=== PATIENT | male | born 1995 | race Caucasian/White ===

== ENCOUNTER 2020-06-11 14:43 | Emergency (ER) | payer OTHER ==
[~2020-06-11] VITALS: Ht 172.7 cm; Wt 90.7 kg
--- NOTE | 2020-06-11 14:43 | NUR ---
med VERSED 2MG IV. FOLLOWED BY 2MG VERSED IV FOR SEIZURE ACTIVITY.
--- NOTE | 2020-06-11 14:43 | NUR ---
ARRIVAL PT TO ED2 SEIZING FROM VEHICLE. HX OF SEIZING ACCORDING TO FRIEND. STATES HEHAS BEEN UNRESPONSIVE AND SEIZING SINCE PANHANDLE FOR APPROX. 30 MINUTES.
--- NOTE | 2020-06-11 14:43 | NUR ---
Elroy diaz in [facility] - 06/11/20 at 1626 by RTDUYEN MED ATIVAN 4MG IV
[2020-06-11 14:44] VITALS: BP 91/71
--- NOTE | 2020-06-11 14:44 | NUR ---
Elroy diaz in [facility] - 06/11/20 at 1626 by RTWAIT MED VERSED 2MG GIVEN IV. X2. VS: 91/71, 83% O2, 129 HR.
--- NOTE | 2020-06-11 14:46 | NUR ---
AIRWAY MAINTAINING AIRWAY, BAG AND MASK UNTIL INTUBATION.
--- NOTE | 2020-06-11 14:51 | NUR ---
Elroy diaz in [facility] - 06/11/20 at 1626 by RTWAIT MED 100MG NILS IV GIVEN FOR INTUBATION.
--- NOTE | 2020-06-11 14:51 | NUR ---
MED NILS 100MG GIVEN IV FOR INTUBATION.
--- NOTE | 2020-06-11 14:52 | NUR ---
INTUBATION PT INTUBATED WITH 7.5 ETT, 22 AT THE LIP. VERIFIED
--- NOTE | 2020-06-11 14:52 | NUR ---
pt hyperventilated via ambu bag/mask, intubated on 1st attempt with 7.5 ETT, by DOV Mcclellan, secured at the 22cm at teeth, confirmation with color change, bbs and followed by xray,
[2020-06-11 14:54] VITALS: BP 154/76
[2020-06-11 15:01] VITALS: BP 139/52
--- NOTE | 2020-06-11 15:01 | NUR ---
PROPOFOL GTT STARTED AT 5MCG/KG/MIN.
[2020-06-11] MEDS ORDERED: NS 1000ML ONE (15:07)
[2020-06-11] MEDS ORDERED: ATIVAN ONE ×2 (15:07→15:54)
[2020-06-11] MEDS ORDERED: VERSED ONE (15:07)
[2020-06-11] MEDS ORDERED: QUELICIN ONE (15:08)
[2020-06-11 15:15] VITALS: BP 91/71
[2020-06-11 15:20] LABS: ABG PCO2 37.7 mmHg (35.0-45.0); ABG PH 7.167 (7.350-7.450); BE(B) -14.4 mmol/L (-2.0-2.0); HCO3act 13.3 mmol/L (22.0-26.0); pO2 341.9 mmHg (80.0-100.0)
[2020-06-11 15:23] LABS: BASOPHIL % 0.1 % (0.0-0.2); EOSINOPHIL # 0.2 10^3/uL (0.0-0.2); EOSINOPHIL % 1.1 % (0.0-5.0); LYMPHOCYTES % 30.2 % (24.0-44.0); MEAN CORP HGB 29.7 pg (26-34); MONOCYTES # 1.7 10^3/uL (0.3-0.8); NEUTROPHIL # 13.1 10^3/uL (1.8-7.7); NEUTROPHILS % 59.9 % (41.0-85.0); PLATELET COUNT 356 10^3/uL (150-400); RED CELL DISTRIBUTION WIDTH 14.4 % (11.5-14.5)
--- NOTE | 2020-06-11 15:44 | PCM.EKG ---
[facility] Test Date: 2020-06-11 Test Time: 15:29:38 Pat Name: GABRIELLE NGUYEN Department: Patient ID: [id number] Room: Gender: M [place]: RT : 1995 Requested By: REBEL VENEGAS Order Number: [id number] Reading MD: Rebel Venegas Measurements Intervals [place] Rate: 99 P: 72 WV: 110 QRS: 73 QRSD: 103 T: 66 QT: 347 QTc: 446 Interpretive Statements Sinus arrhythmia Borderline ST depression, diffuse leads No previous ECG available for comparison Electronically Signed On 06-14-2020 15:18:42 CDT by Rebel Venegas Please click the below link to view image of tracing.
--- NOTE | 2020-06-11 15:45 | DIREP ---
PROCEDURE:CHEST 1 VIEW COMPARISON:[facility], , CHEST 2 VIEW, 08/09/2013, 04:16 PM. INDICATIONS:S/P INTUBATION FINDINGS: LUNGS/PLEURA:Tip of ETT in satisfactory position above the [place]. Bilateral parahilar pulmonary opacities. Haziness in the right lung base suggestive of pleural fluid layering posteriorly. CARDIAC:Normal cardiac silhouette and increased pulmonary vascularity. MEDIASTINUM:Normal BONES:Normal OTHER:NGT courses subdiaphragmatic and off the field of view. CONCLUSION:Findings suggestive of pulmonary edema or pneumonia. Dictated by: Radha Rojas MD on 06/11/2020 at 03:41 PM
[2020-06-11] MEDS ORDERED: NS 1000ML 1,000 ML ONE (15:47)
--- NOTE | 2020-06-11 15:47 | NUR ---
CT PT TO CT. PROPOFOL DRIP INCREASED TO 8MCG/KG/MIN.
[2020-06-11 15:52] LABS: ALANINE AMINOTRANSFERASE(ML) 15 U/L (12-78); ALKALINE PHOSPHATASE 83 U/L (50-136); ASPARTATE AMINO TRANSFERASE 20 U/L (0-35); CALCIUM 8.7 mg/dL (8.4-10.5); CARBON DIOXIDE 10.3 mmol/L (20.0-32); GLUCOSE 144 mg/dL (70-110)
[2020-06-11] MEDS ORDERED: KCL 20MEQ/100ML 100 ML IV STA (16:03)
--- NOTE | 2020-06-11 16:10 | NUR ---
CT PT BACK FROM CT SCAN.
--- NOTE | 2020-06-11 16:15 | DIREP ---
PROCEDURE:CT HEAD OR BRAIN W/O CONTRAST COMPARISON:[facility], CT, CT HEAD BRAIN W/O CONTRAST, 04/01/2015, 04:55 PM. INDICATIONS:SEIZURE TECHNIQUE:CT images were created without intravenous contrast. FINDINGS: VENTRICLES:The ventricles are normal in size and configuration. CEREBRUM:Normal cerebral morphology with appropriate jay white matter differentiation. CEREBELLUM:Negative. BRAINSTEM:Negative. BASAL CISTERNS:Negative. HEMORRHAGE:No MASS LESION:No ACUTE INFARCT:No SKULL:Normal. SINUSES:Normal. OTHER:None CONCLUSION:Normal examination. There is no significant change as compared with the previous examination. Dictated by: Kamron Joiner M.D. on 06/11/2020 at 04:13 PM
--- NOTE | 2020-06-11 16:16 | ER.PDOC ---
General Chief Complaint: Seizure Stated Complaint: SIEZURE Time seen by MD: 15:33 Source: family Exam Limitations: clinical condition History of Present Illness Initial Comments IN STATUS EPILEPTICUS Timing/Onset/Duration: Unknown Duration, Multiple Episodes, Status Epilepticus, Continued On Arrival Preceding Symptoms/Context: none Character Of Seizures: completely, did not regain between Motor Activity: shaking all over Injury: none Prior symptoms/Treatment: Similar symptoms previous Allergies: Coded Allergies: No Known Allergies (Unverified , 07/14/13) Past Medical History Surgical History: no surgical history Social History Alcohol Use: none Drug Use: marijuana Reviewed Nursing Reviewed: Vital Signs, Abn. Noted All Other Systems: Reviewed and Negative Physical Exam General Appearance: severe distress, convulsing EENT: nml eye inspection, PERRL, no nystagmus, nml ENT inspection, no apparent, pharynx nml, no CSF leak Neck/Back: neck supple, non-tender Respiratory: no resp distress, no evidence of rib injury, rhonchi CVS: heart sounds nml, tachycardia Abdomen: non-tender, no organomegaly, no distention Skin: no rash, warm/dry, cyanosis, diaphoresis Extremities: non-tender, nml ROM, no pedal edema Observed Seizure Activity: generalized Intubation Intubation : Intubation Method: orotracheal Blade: straight Tube Size (cm): 7.0 Preoxygenated: Yes Medications: Rocuronium, Versed Breath Sounds after Intubation: equal Intubation Complications: no complications Results/Orders Results/Orders Orders - KAYLEIGH VENEGAS MD 0.9 % Sodium Chloride (Ns 1000ml) (06/11/20 15:07) Midazolam Hcl (Versed) (06/11/20 15:07) Lorazepam (Ativan) (06/11/20 15:07) Succinylcholine Chloride (Quelicin) (06/11/20 15:08) Cbc With Auto Diff (06/11/20 15:08) Comprehensive Metabolic Panel (06/11/20 15:08) Creatine Kinase (06/11/20 15:08) Creatine Kinase Mb (06/11/20 15:08) Troponin I (06/11/20 15:08) Probnp B-Type Inspection Machine Tender (06/11/20 15:08) PT (06/11/20 15:08) Partial Thromboplastin Time. (06/11/20 15:08) Helicobacter Pylori (06/11/20 15:08) D-Dimer (06/11/20 15:08) Xr Chest 1v (06/11/20 15:08) Ekg-Routine (06/11/20 15:08) Arterial Blood Gas (06/11/20 15:08) Drug Scrn Med W Confirmation (06/11/20 15:16) Alcohol(Ml) (06/11/20 15:16) Ct Head Wo Contrast (06/11/20 15:17) 0.9 % Sodium Chloride (Ns 1000ml) (06/11/20 15:47) Lorazepam (Ativan) (06/11/20 15:54) Potassium Chloride (Kcl 20meq/100ml) (06/11/20 16:03) Vital Signs Date Time Temp Pulse Resp B/P (MAP) Pulse Ox O2 Delivery O2 Flow Rate FiO2 06/11/20 15:15 97.5 115 24 91/71 (78) 83 Mechanical Ventilator 15.00 06/11/20 15:15 97.5 115 24 83 06/11/20 15:15 97.5 115 24 Laboratory Tests Test 06/11/20 15:00 06/11/20 15:08 White Blood Count 21.9 10^3/uL (4.5-11.0) H Red Blood Count 5.15 10^6/uL (4.50-5.90) Hemoglobin 15.3 g/dL (13.9-16.3) Hematocrit 48.5 % (37.0-53.0) Mean Corpuscular Volume 94.2 fL (78-100) Mean Corpuscular Hemoglobin 29.7 pg (26-34) Mean Corpuscular Hemoglobin Concent 31.5 g/dL (33-36.5) L Red Cell Distribution Width 14.4 % (11.5-14.5) Platelet Count 356 10^3/uL (150-400) Mean Platelet Volume 10.5 fL (7.8-11.0) Neutrophils (%) (Auto) 59.9 % (41.0-85.0) Lymphocytes (%) (Auto) 30.2 % (24.0-44.0) Monocytes (%) (Auto) 8.0 % (5.0-12.0) Neutrophils # (Auto) 13.1 10^3/uL (1.8-7.7) H Lymphocytes # (Auto) 6.60 10^3/uL1 (1.0-4.8) H Monocytes # (Auto) 1.7 10^3/uL (0.3-0.8) H Absolute Immature Granulocyte (auto 0.16 10^3 u/L (0-2) Absolute Eosinophils (auto) 0.2 10^3/uL (0.0-0.2) Immature Granulocytes % 0.70 % (0.00-0.50) H Eosinophils % 1.1 % (0.0-5.0) Basophils % 0.1 % (0.0-0.2) Basophils # 0.0 10^3/uL (0.0-0.1) Prothrombin Time 11.5 SEC (9.3-11.3) H Prothrombin Time INR (Non-Therap) 1.1 Activated Partial Thromboplast Time 24.4 SEC (24.67-30.72) D-Dimer 2.07 mg/L (0.19-0.49) *H Sodium Level 139 mmol/L (132-145) Potassium Level 2.5 mmol/L (3.6-5.2) L Chloride Level 100.0 mmol/L (96-109) Carbon Dioxide Level 10.3 mmol/L (20.0-32) L Anion Gap 31.2 Blood Urea Nitrogen 10 mg/dL (7-18) Creatinine 1.48 mg/dL (0.59-1.40) H Estimated GFR () 71.9 (>/=60) Est GFR (CKD-EPI)(Non-Afr Icelandic) 59.4 (>/=60) BUN/Creatinine Ratio 6.0 Glucose Level 144 mg/dL (70-110) H Calcium Level 8.7 mg/dL (8.4-10.5) Total Bilirubin 0.3 mg/dL (0.2-1.0) Aspartate Amino Transferase (AST) 20 U/L (0-35) Alanine Aminotransferase (ALT) 15 U/L (12-78) Alkaline Phosphatase 83 U/L (50-136) Total Creatine Kinase 137 U/L (39-308) Creatine Kinase MB 1.0 ng/mL (0.5-3.6) Troponin I < 0.02 ng/mL (0.00-0.05) Pro-B-Type Natriuretic Peptide 150 pg/mL (0-125) H Total Protein 8.3 g/dL (6.4-8.2) H Albumin 4.7 g/dL (3.4-5.0) Globulin 3.6 Serum Alcohol < 3 mg/dL (0-50) Helicobacter pylori Screen NEGATIVE (NEGATIVE) Blood Gas Sample Site RT RADIAL ARTERY Blood pH 7.167 (7.350-7.450) Blood Gas PCO2 37.7 mmHg (35.0-45.0) Blood Gas PO2 341.9 mmHg (80.0-100.0) Blood Gas HCO3 13.3 mmol/L (22.0-26.0) L Blood Gas Base Excess -14.4 mmol/L (-2.0-2.0) L Arthur Test N/A Arterial Blood Oxygen Saturation 99.2 % (94.0-97.00) H Deoxyhemoglobin 0.8 % (0.0-5.0) Carboxyhemoglobin 3.7 % (0.0-3.9) Methemoglobin 0.3 % (0.00-5.0) Total Hemoglobin 15.0 % (12.0-17.8) Total Oxygen Concentration 20.9 % (13.5-17.5) H Blood Gas Temperature 37 Oxygen Delivery Method BAGGING FiO2 100 % (20-101) Total Carbon Dioxide 14.5 mmol/L (23-27) L Consult/PCP Time Consult/PCP Called: 16:22 Consult/PCP: DR GONZALEZ Departure Time of Disposition: 16:11 Disposition: 02 XFER SHT-TRM HOSP Impression: Primary Impression: Status epilepticus Condition: Stable Referrals: ALFRED PIEDRA MD (PCP) PRIMARY CARE PROVIDER Duration or Time Spent with Pa: 39 Critical Care Note Total Time (mins): 30 KAYLEIGH VENEGAS MD Jun 11, 2020 16:16
--- NOTE | 2020-06-11 16:20 | NUR ---
MED ATIVAN DRIP STARTED AT 35CC/HOUR OR 7MG/HR. 100MG NILS GIVEN WELL. PT IS MOVING ALL EXTREMITIES IN SEIZURE LIKE MOTION.
[2020-06-11 16:21] VITALS: BP 170/92
--- NOTE | 2020-06-11 16:22 | NUR ---
med PROPOFOL DRIP STOPPED.
[2020-06-11] MEDS ORDERED: SUBLIMAZE ONE (16:30)
[2020-06-11 16:37] VITALS: BP 119/66
[2020-06-11] MEDS ORDERED: KCL 20MEQ/100ML 100 ML IV ONE (16:46)
[2020-06-11 16:58] LABS: ABG PCO2 59.5 mmHg (35.0-45.0); ABG PH 7.213 (7.350-7.450); BE(B) -5.4 mmol/L (-2.0-2.0); HCO3act 23.4 mmol/L (22.0-26.0); pO2 86.9 mmHg (80.0-100.0)
[2020-06-11] MEDS ORDERED: NS IV ONE (17:00)
[2020-06-11] MEDS ORDERED: ATIVAN IV ONE (17:00)
[2020-06-11] MEDS ORDERED: ZEMURON IV ONE (17:00)
--- NOTE | 2020-06-11 17:15 | NUR ---
LIFESTAR LIFESTAR HERE, REPORT CALLED TO [facility] ED AND GIVEN TO [facility]. PT TAKEN IN STABLE CONDITION BY LIFESTAR.
== END 2020-06-11 17:15 | disposition short-term general hospital (02) ==
LOC: ER 14:43
DX: G40.901 Epilepsy, unspecified, not intractable, with status epilepticus (principal); F12.90 Cannabis use, unspecified, uncomplicated; R79.1 Abnormal coagulation profile
CPT/HCPCS: 31500; 36415; 36600 ×2; 70450; 71045; 80053; 82550; 82553; 82803 ×2; 83880; 84484; 85025; 85379; 85610; 85730; 86677; 93005; 99291; J0330; J2060 ×3; J2250; J3010; J3490; J7030 ×2; J7050; 80320; 94002; J3480

== ENCOUNTER 2020-06-16 20:24 | Emergency (ER) | payer OTHER ==
[~2020-06-16] VITALS: Ht 182.9 cm; Wt 81.6 kg
[2020-06-16 21:56] VITALS: BP 131/64
[2020-06-16] MEDS ORDERED: MOTRIN ONE (22:02)
[2020-06-16] MEDS ORDERED: MOTRIN PO STA (22:02)
--- NOTE | 2020-06-16 22:29 | DIREP ---
PROCEDURE: CT SPINE CERVICAL W/O COMPARISON:None. INDICATIONS:Pain/injury FINDINGS: ALIGNMENT:Normal. VERTEBRAE:There was considerable motion on the study. No obvious fracture. PARASPINAL AREA:Normal. OTHER:No additional findings. CERVICAL DISC LEVELS C2-C3:Normal. C3-C4:Normal. C4-C5:Normal. C5-C6:Normal. C6-C7:Normal. C7-T1:Normal. CONCLUSION:Considerable motion on the study. No obvious fracture. Dictated by: Manohar Bernal M.D. on 06/16/2020 at 10:27 PM
--- NOTE | 2020-06-16 22:39 | ER.PDOC ---
General Chief Complaint: Neck/Upper back Pain Stated Complaint: NECK PAIN Time seen by MD: 22:37 Source: patient Exam Limitations: no limitations History of Present Illness Initial Comments Neck pain for 5 days, he had a seizure 5 days ago and was air lifted to [place]. He has had neck pain since then. Severity/Quality: moderate Modifying Factors: improves with movement Associated Symptoms: denies symptoms Allergies: Coded Allergies: No Known Allergies (Unverified , 07/14/13) Past Medical History Medical History: other Surgical History: no surgical history Social History Alcohol Use: none Drug Use: marijuana Review of Systems Constitutional: no symptoms reported EENTM: no symptoms reported Respiratory: no symptoms reported Cardiovascular: no symptoms reported Gastrointestinal: no symptoms reported Musculoskeletal: see HPI All Other Systems: Reviewed and Negative Physical Exam General Appearance: No Apparent Distress, WD/WN HEENT: PERRL/EOMI, Normal ENT Inspection, TMs Normal, Pharynx Normal Neck: Tenderness Cardiovascular/Respiratory: Regular Rate, Rhythm, No M/R/G, Normal Peripheral Pulses, No JVD, Normal Breath Sounds, No Respiratory Distress Gastrointestinal: Normal Bowel Sounds, No Organomegaly, No Pulsatile Mass, Non Tender, Soft Back: Normal Inspection, No CVA Tenderness, No Vertebral Tenderness Extremities: No Evidence of Injury, Normal Range of Motion, Non-Tender, No Pedal Edema, Pelvis Stable 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, 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, 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 nml, No Motor/Sensory Deficits, Relexes nml Skin: Normal Color, Warm/Dry Results/Orders Results/Orders Orders - BRANDON VOSS MD Ct Cervical Spine (06/16/20 22:02) Ibuprofen (Motrin) (06/16/20 22:02) Ibuprofen (Motrin) (06/16/20 22:02) Vital Signs Date Time Temp Pulse Resp B/P (MAP) Pulse Ox O2 Delivery O2 Flow Rate FiO2 06/16/20 21:56 98.5 76 20 100 06/16/20 21:56 98.5 76 20 100 Administered Medications Medications (Trade) Dose Ordered Sig/Leeanna Route PRN Reason Start Time Stop Time Status Last Admin Dose Admin Ibuprofen (Motrin) 800 mg STAT STAT PO 06/16/20 22:02 06/16/20 22:04 DC 06/16/20 22:15 800 MG EKG/XRAY/CT/US CT Comments: No acute fracture of neck Departure Time of Disposition: 22:38 Disposition: 01 HOME, SELF-CARE Impression: Primary Impression: Neck pain Condition: Stable Referrals: ALFRED PIEDRA MD (PCP) PRIMARY CARE PROVIDER Additional Instructions: Ibuprofen F/U with your PCP next week Return to ED as needed. Duration or Time Spent with Pa: 30 min BRANDON VOSS MD Jun 16, 2020 22:39
== END 2020-06-16 22:50 | disposition home or self-care (01) ==
LOC: ER 21:03
DX: M54.2 Cervicalgia (principal); R56.9 Unspecified convulsions; F12.10 Cannabis abuse, uncomplicated; Z79.1 Long term (current) use of non-steroidal anti-inflammatories (NSAID)
CPT/HCPCS: 72125; 99284